=== PATIENT | female | born 1985 | race Caucasian/White ===

== ENCOUNTER 2018-08-24 13:20 | Inpatient (IN) | payer OTHER ==
[~2018-08-24] VITALS: Ht 153 cm; Wt 99.8 kg
[2018-08-24] MEDS ORDERED: RINGERS SOLUTION,LACTATED 1,000 ML IV PRN (14:04)
[2018-08-24] MEDS ORDERED: METOCLOPRAMIDE HCL 5 MG/ML 2 ML VIAL IVP PRN (14:15)
[2018-08-24] MEDS ORDERED: CITRIC ACID/SODIUM CITRATE 30 ML SOLUTION UDCUP PO PRN (14:15)
[2018-08-24 14:46] LABS: BASOPHILS % (AUTO) 0.3 % (0.0-2.0); EOSINOPHILS % (AUTO) 0.9 % (1.0-6.0); HEMATOCRIT 40.4 % (36-46); LYMPHOCYTES % (AUTO) 19.7 % (22.0-44.0); MEAN CORPUSCULAR HEMOGLOBIN 31.8 pg (26.0-34.0); MEAN CORPUSCULAR HGB CONC 34.5 G/dL (31.0-37.0); MEAN CORPUSCULAR VOLUME 92 fL (80-100); MONOCYTES # (AUTO) 0.3 K/uL (0.1-1.0); MONOCYTES % (AUTO) 3.2 % (2.0-9.0); NEUTROPHILS # (AUTO) 7.8 K/uL (1.8-7.7); NEUTROPHILS % (AUTO) 75.9 % (40.0-70.0); PLATELET COUNT (AUTO)-OB 257 K/uL (150-450); RED CELL DISTRIBUTION WIDTH 13.1 % (11.5-14.5)
[2018-08-24] MEDS: RINGERS SOLUTION,LACTATED 1,000 ML IV SCH ×2 (14:58→23:35)
[2018-08-24] MEDS: AMPICILLIN SODIUM 2 GM/NS 100 ML IV SCH ×2 (14:59→20:58)
[2018-08-24] MEDS ORDERED: BETAMETHASONE SOLUSPAN 6 MG/ML 5 ML VIAL IM SCH (15:00)
[2018-08-24 15:21] VITALS: BP 129/80
[2018-08-24] MEDS ORDERED: ERYTHROMYCIN BASE 500 MG TABLET PO ONE (15:30)
[2018-08-24] MEDS ORDERED: ROPIVACAINE HCL/PF 0.2% 100 ML ED ONE (19:35)
[2018-08-24] MEDS ORDERED: OXYTOCIN 30 UNITS/LACT RINGERS 500 ML IV ONE (20:51)
[2018-08-25] MEDS: AMPICILLIN SODIUM 2 GM/NS 100 ML IV SCH ×4 (03:07→21:26)
[2018-08-25] MEDS: RINGERS SOLUTION,LACTATED 1,000 ML IV SCH ×2 (03:08→18:36)
[2018-08-25] MEDS: OXYGEN THERAPY IH SCH ×2 (08:00→20:00)
[2018-08-26] MEDS: AMPICILLIN SODIUM 2 GM/NS 100 ML IV SCH ×4 (03:11→20:48)
[2018-08-26] MEDS: RINGERS SOLUTION,LACTATED 1,000 ML IV SCH ×3 (03:11→20:49)
[2018-08-26] MEDS: OXYGEN THERAPY IH SCH ×2 (08:00→20:00)
[2018-08-27] MEDS: AMPICILLIN SODIUM 2 GM/NS 100 ML IV SCH ×4 (02:28→21:08)
[2018-08-27] MEDS: OXYGEN THERAPY IH SCH ×2 (08:00→20:00)
[2018-08-27] MEDS: RINGERS SOLUTION,LACTATED 1,000 ML IV SCH ×2 (08:36→20:39)
[2018-08-27] MEDS: 0.9% SODIUM CHLORIDE 10 ML SYRINGE IVP SCH (16:00)
[2018-08-27] MEDS ORDERED: NIFEdipine 10 MG CAPSULE PO ONE (20:30)
[2018-08-27] MEDS ORDERED: CALCIUM GLUCONATE 100 MG/ML 10 ML IVP PRN (21:45)
[2018-08-27] MEDS ORDERED: MAGNESIUM SULFATE 4 GM/WATER 100 ML IV ONE (21:45)
[2018-08-27 22:00] LABS: BASOPHILS % (AUTO) 0.6 % (0.0-2.0); EOSINOPHILS % (AUTO) 0.1 % (1.0-6.0); HEMATOCRIT 36.2 % (36-46); HEMOGLOBIN 12.4 g/dL (12.0-16.0); LYMPHOCYTES # (AUTO) 2.7 K/uL (1.0-4.8); LYMPHOCYTES % (AUTO) 12.5 % (22.0-44.0); MEAN CORPUSCULAR HGB CONC 34.2 G/dL (31.0-37.0); MEAN CORPUSCULAR VOLUME 94 fL (80-100); MONOCYTES # (AUTO) 1.8 K/uL (0.1-1.0); MONOCYTES % (AUTO) 8.5 % (2.0-9.0); NEUTROPHILS # (AUTO) 16.7 K/uL (1.8-7.7); NEUTROPHILS % (AUTO) 78.3 % (40.0-70.0); PLATELET COUNT (AUTO)-OB 246 K/uL (150-450); RED BLOOD CELL COUNT(AUTO) 3.87 MIL/uL (4.00-5.20); RED CELL DISTRIBUTION WIDTH 13.2 % (11.5-14.5)
[2018-08-27] MEDS: MAGNESIUM SULFATE 500 ML IV SCH (23:09)
[2018-08-28] MEDS: RINGERS SOLUTION,LACTATED 1,000 ML IV SCH ×2 (03:02→19:25)
[2018-08-28] MEDS: AMPICILLIN SODIUM 2 GM/NS 100 ML IV SCH ×4 (03:02→21:25)
[2018-08-28] MEDS ORDERED: TERBUTALINE SULFATE 1 MG/ML VIAL SQ ONE ×2 (07:30→14:30)
[2018-08-28] MEDS: OXYGEN THERAPY IH SCH ×2 (08:00→20:00)
[2018-08-28] MEDS: MAGNESIUM SULFATE 500 ML IV SCH ×2 (08:57→19:26)
[2018-08-28] MEDS ORDERED: ACETAMINOPHEN 325 MG TABLET PO ONE (09:45)
[2018-08-28] MEDS ORDERED: BETAMETHASONE SOLUSPAN 6 MG/ML 5 ML VIAL IM ONE (17:00)
[2018-08-28] MEDS ORDERED: TERBUTALINE SULFATE 1 MG/ML VIAL SQ PRN (22:15)
[2018-08-29] MEDS: AMPICILLIN SODIUM 2 GM/NS 100 ML IV SCH ×2 (02:52→08:58)
[2018-08-29] MEDS: BUTORPHANOL TARTRATE 2 MG/ML VIAL IVP PRN ×2 (02:53→09:01)
[2018-08-29 05:42] LABS: BASOPHILS % (AUTO) 0.1 % (0.0-2.0); EOSINOPHILS % (AUTO) 0 % (1.0-6.0); HEMOGLOBIN 12.6 g/dL (12.0-16.0); LYMPHOCYTES # (AUTO) 0.9 K/uL (1.0-4.8); LYMPHOCYTES % (AUTO) 3.8 % (22.0-44.0); MEAN CORPUSCULAR HEMOGLOBIN 32.6 pg (26.0-34.0); MEAN CORPUSCULAR VOLUME 93 fL (80-100); MONOCYTES # (AUTO) 0.6 K/uL (0.1-1.0); MONOCYTES % (AUTO) 2.4 % (2.0-9.0); NEUTROPHILS # (AUTO) 23.1 K/uL (1.8-7.7); PLATELET COUNT (AUTO)-OB 263 K/uL (150-450); RED BLOOD CELL COUNT(AUTO) 3.88 MIL/uL (4.00-5.20); RED CELL DISTRIBUTION WIDTH 13.5 % (11.5-14.5)
[2018-08-29 05:48] LABS: NEUTROPHILS % (AUTO) 93.7 % (40.0-70.0)
[2018-08-29] MEDS: RINGERS SOLUTION,LACTATED 1,000 ML IV SCH (08:44)
[2018-08-29] MEDS ORDERED: ROPIVACAINE HCL/PF 0.2% 100 ML ED ONE (12:30)
[2018-08-29] MEDS ORDERED: CITRIC ACID/SODIUM CITRATE 30 ML SOLUTION UDCUP PO ONE (12:45)
[2018-08-29] MEDS ORDERED: METOCLOPRAMIDE HCL 5 MG/ML 2 ML VIAL IVP ONE (12:45)
[2018-08-29] MEDS ORDERED: MORPHINE SULFATE/PF 1 MG/ML 10 ML AMP ONE (12:56)
[2018-08-29] MEDS ORDERED: MIDAZOLAM HCL 2 MG/2 ML VIAL ONE (12:56)
[2018-08-29] MEDS ORDERED: NALOXONE HCL 0.4 MG/ML VIAL IVP PRN (13:45)
[2018-08-29] MEDS ORDERED: FentaNYL CITRATE-PF 100 MCG/2 ML VIAL IVP PRN (13:45)
[2018-08-29] MEDS ORDERED: MEPERIDINE-PF 25 MG/ML VIAL IVP PRN (13:45)
[2018-08-29] MEDS ORDERED: ONDANSETRON HCL 4 MG/2 ML VIAL IVP PRN (13:45)
[2018-08-29] MEDS ORDERED: OxyCODONE HCL/ACETAMINOPHEN 5-325 MG TABLET PO PRN (13:45)
[2018-08-29] MEDS ORDERED: DiphenhydrAMINE HCL 50 MG/ML VIAL IVP PRN (13:45)
[2018-08-29] MEDS: HYDROmorphone 2 MG/ML SYRINGE IVP PRN ×2 (15:22→15:35)
[2018-08-29] MEDS ORDERED: ACETAMINOPHEN/CODEINE 300-30 MG TABLET PO PRN (15:45)
[2018-08-29] MEDS ORDERED: LANOLIN 7 GM OINTMENT TP PRN (15:45)
[2018-08-29] MEDS: KETOROLAC TROMETHAMINE 30 MG/ML VIAL IVP SCH ×2 (17:47→23:36)
[2018-08-29] MEDS: DEXTROSE 5%-0.45% SODIUM CHL 1,000 ML IV SCH ×2 (17:47→21:10)
[2018-08-29] MEDS ORDERED: OXYGEN THERAPY IH SCH ×2 (20:00)
[2018-08-29] MEDS: MAGNESIUM HYDROXIDE SUSPENSION 30 ML UDCUP PO SCH (21:00)
[2018-08-30] MEDS: DEXTROSE 5%-0.45% SODIUM CHL 1,000 ML IV SCH ×2 (00:40→04:20)
[2018-08-30] MEDS ORDERED: ACETAMINOPHEN 500 MG TABLET PO ONE (02:45)
[2018-08-30] MEDS ORDERED: HYDROmorphone 2 MG/ML SYRINGE IVP PRN (02:45)
[2018-08-30] MEDS: KETOROLAC TROMETHAMINE 15 MG/ML VIAL IVP SCH ×2 (06:23→12:03)
[2018-08-30] MEDS ORDERED: METOCLOPRAMIDE HCL 5 MG/ML 2 ML VIAL IVP ONE (07:02)
[2018-08-30] MEDS ORDERED: ONDANSETRON HCL 4 MG/2 ML VIAL IVP ONE (07:02)
[2018-08-30] MEDS ORDERED: OXYTOCIN 10 UNITS/ML VIAL IM ONE (07:02)
[2018-08-30] MEDS ORDERED: LIDOCAINE/PF 2% 5 ML VIAL IM ONE (07:02)
[2018-08-30] MEDS ORDERED: DEXAMETHASONE SOD PHOS 4 MG/ML VIAL IVP ONE (07:02)
[2018-08-30] MEDS ORDERED: KETOROLAC TROMETHAMINE 60 MG/2 ML VIAL IM ONE (07:02)
[2018-08-30] MEDS: ACETAMINOPHEN 500 MG TABLET PO SCH ×2 (09:38→15:29)
[2018-08-30] MEDS: MAGNESIUM HYDROXIDE SUSPENSION 30 ML UDCUP PO SCH ×2 (09:57→20:51)
[2018-08-30] MEDS ORDERED: *CLINICAL-GENTAMICIN DOSING CLINICAL ONE (11:00)
[2018-08-30] MEDS: CLINDAMYCIN 900 MG/D5% WATER 50 ML IV SCH ×3 (11:00→23:57)
[2018-08-30] MEDS: DEXTROSE 5% IV SCH (12:50)
[2018-08-30] MEDS: GENTAMICIN SULFATE IV SCH (12:50)
[2018-08-30] MEDS: WATER IV SCH (12:50)
[2018-08-30 15:33] LABS: BASOPHILS % (AUTO) 0.2 % (0.0-2.0); EOSINOPHILS % (AUTO) 0 % (1.0-6.0); HEMATOCRIT 36.7 % (36-46); HEMOGLOBIN 12.4 g/dL (12.0-16.0); LYMPHOCYTES # (AUTO) 2.6 K/uL (1.0-4.8); LYMPHOCYTES % (AUTO) 15.6 % (22.0-44.0); MEAN CORPUSCULAR HEMOGLOBIN 32.2 pg (26.0-34.0); MEAN CORPUSCULAR HGB CONC 33.9 G/dL (31.0-37.0); MEAN CORPUSCULAR VOLUME 95 fL (80-100); MONOCYTES # (AUTO) 1.1 K/uL (0.1-1.0); MONOCYTES % (AUTO) 6.3 % (2.0-9.0); NEUTROPHILS % (AUTO) 77.9 % (40.0-70.0); PLATELET COUNT (AUTO)-OB 255 K/uL (150-450); RED BLOOD CELL COUNT(AUTO) 3.86 MIL/uL (4.00-5.20); RED CELL DISTRIBUTION WIDTH 13.6 % (11.5-14.5)
[2018-08-30] MEDS: IBUPROFEN 800 MG TABLET PO SCH (20:51)
[2018-08-30] MEDS: 0.9% SODIUM CHLORIDE 10 ML SYRINGE IVP SCH (23:57)
[2018-08-31] MEDS: IBUPROFEN 800 MG TABLET PO SCH ×4 (02:54→23:49)
[2018-08-31 05:31] LABS: ANION GAP 5 mmol/L (8-16); CALCIUM, TOTAL 8.1 mg/dL (8.8-10.5); CARBON DIOXIDE 27 mmol/L (22-29); CHLORIDE 106 mmol/L (98-107); CREATININE 0.68 mg/dL (0.60-1.30); GENTAMICIN,RANDOM 0.3 mcg/mL (4.0-10.0); GLOMERULAR FILTR. RATE CALC > 60 mL/min (>60); GLUCOSE,RANDOM 85 mg/dL (70-110); POTASSIUM 4.4 mmol/L (3.5-5.1); SODIUM SERUM 138 mmol/L (136-145); UREA NITROGEN, BLOOD 9 mg/dL (7-18)
[2018-08-31] MEDS: ACETAMINOPHEN/CODEINE 300-30 MG TABLET PO PRN ×2 (07:40→13:14)
[2018-08-31] MEDS: CLINDAMYCIN 900 MG/D5% WATER 50 ML IV SCH ×2 (07:51→15:45)
[2018-08-31] MEDS: MAGNESIUM HYDROXIDE SUSPENSION 30 ML UDCUP PO SCH ×2 (09:11→20:48)
[2018-08-31 12:22] LABS: BASOPHILS % (AUTO) 0.3 % (0.0-2.0); EOSINOPHILS % (AUTO) 0.2 % (1.0-6.0); HEMATOCRIT 36.7 % (36-46); HEMOGLOBIN 12.6 g/dL (12.0-16.0); LYMPHOCYTES # (AUTO) 2.4 K/uL (1.0-4.8); LYMPHOCYTES % (AUTO) 20.1 % (22.0-44.0); MEAN CORPUSCULAR HGB CONC 34.2 G/dL (31.0-37.0); MEAN CORPUSCULAR VOLUME 94 fL (80-100); MONOCYTES # (AUTO) 0.8 K/uL (0.1-1.0); MONOCYTES % (AUTO) 6.5 % (2.0-9.0); NEUTROPHILS # (AUTO) 8.9 K/uL (1.8-7.7); NEUTROPHILS % (AUTO) 72.9 % (40.0-70.0); PLATELET COUNT (AUTO)-OB 274 K/uL (150-450); RED BLOOD CELL COUNT(AUTO) 3.93 MIL/uL (4.00-5.20); RED CELL DISTRIBUTION WIDTH 13.1 % (11.5-14.5)
[2018-08-31] MEDS: DEXTROSE 5% IV SCH (13:04)
[2018-08-31] MEDS: GENTAMICIN SULFATE IV SCH (13:04)
[2018-08-31] MEDS: WATER IV SCH (13:04)
[2018-09-01] MEDS ORDERED: MEASLES/MUMPS/RUBELLA VACCINE, LIVE 0.5 ML/VIAL SQ ONE (04:45)
[2018-09-01] MEDS: IBUPROFEN 800 MG TABLET PO SCH ×2 (06:09→12:16)
[2018-09-01] MEDS: MAGNESIUM HYDROXIDE SUSPENSION 30 ML UDCUP PO SCH (08:51)
[2018-09-01] MEDS ORDERED: IBUP-2071 PO (09:24)
[2018-09-01] MEDS ORDERED: DSS100 PO (09:25)
[2018-09-01] MEDS ORDERED: PNV1TABL17 (09:27)
== END 2018-09-01 13:00 | disposition home or self-care (01) | DRG 788 ==
LOC: 4S 13:20 → OBSVTOIN 13:20 → NSY 08-29 20:23 → 4S 08-29 20:35
PROVIDERS: ADMIT Obstetrics & Gynecology; ATTEND Obstetrics & Gynecology
PROC: 10D00Z1 Extraction of Products of Conception, Low, Open Approach (ICD-10-PCS; principal; 2018-08-29)
PROC: 3E0234Z Introduction of Serum, Toxoid and Vaccine into Muscle, Percutaneous Approach (ICD-10-PCS; 2018-09-01)
DX: O60.14X0 Preterm labor third trimester with preterm delivery third trimester, not applicable or unspecified (principal); Z3A.32 32 weeks gestation of pregnancy; Z37.0 Single live birth; Z23 Encounter for immunization
CPT/HCPCS: 76811; 83735; 86850; 86900; 86901; 87081; 90686; 90707; J0290; J0595; J0690; J0702; J1100; J1170; J1580; J1885; J2250; J2405; J2590; J2765; J2795; J3105; J3475; J3490; J7060; J7120